=== PATIENT | female | born 1930 | race American Indian/Alaskan Native ===

== ENCOUNTER 2017-09-08 14:41 | Emergency (ER) | payer OTHER ==
[2017-09-08 14:55] VITALS: BMI 31.4
--- NOTE | 2017-09-08 15:28 | PDOC ---
History of Present Illness - History of Present Illness Initial Comments: 09/08/17 16:03 The patient is an 87 year old female with a history of CVA with residual slurred speech, Afib on xeralto, DC, DM, HTN, HLD who presents for evaluation following an injury to her left hip. The patient lives at a alf and is usually wheelchair bound. She states that she got her left leg caught in between her wheelchair and her bed injuring her leg. She reports pain in her left hip and left lower leg and was sent in from her alf for further evaluation. The patient has slurred speech at her baseline and is normal as reported by her son who has accompanied her to the hospital. The patient denies any head trauma or LOC. She denies fevers, chills, SOB, chest pain, abdominal pain, or changes with urination or bowel movements. <Eduard Hong - Last Filed: 09/08/17 19:00> <Karen Garcia - Last Filed: 09/08/17 19:45> - General Chief Complaint: Injury Stated Complaint: HIP PAIN Time Seen by Provider: 09/08/17 15:06 Past History - Past Medical History Cardiac Disorders: Yes (ANGINA.) COPD: No Diabetes: Yes GI Disorders: Yes (GERD. CONSTIPATION.) HTN: Yes Psychiatric Problems: Yes (ANXIETY. DEPRESSION.) Other medical history: RESTLESS LEG SYNDROME. INSOMNIA. - Immunization History Immunization Up to Date: Yes - Suicide/Smoking/Psychosocial Hx Smoking History: Never smoked Hx Alcohol Use: No Drug/Substance Use Hx: No Substance Use Type: None <Eduard Hong - Last Filed: 09/08/17 19:00> <Karen Garcia - Last Filed: 09/08/17 19:45> - Past Medical History Allergies/Adverse Reactions: Allergies Allergy/AdvReac Type Severity Reaction Status Date / Time Iodine and Iodide Containing Allergy Verified 09/08/17 14:55 Produc Penicillins Allergy Verified 09/08/17 14:55 Iv contrast Allergy Uncoded 09/08/17 14:55 Home Medications: Ambulatory Orders Acetaminophen 1,000 mg PO BID 09/08/17 Amlodipine Besylate 10 mg PO DAILY 09/08/17 Carbamide Peroxide [Ear Drops] 15 ml OT TID 09/08/17 Cholecalciferol (Vitamin D3) [Vitamin D3] 5,000 unit PO DAILY 09/08/17 Docusate Sodium 200 mg PO HS 09/08/17 Duloxetine HCl 40 mg PO DAILY 09/08/17 Escitalopram Oxalate [Lexapro -] 5 mg PO DAILY 09/08/17 Folic Acid 1 mg PO DAILY 09/08/17 Gabapentin 100 mg PO BID 09/08/17 Insulin Glargine,Hum.rec.anlog [Lantus Solostar PEN (NF)] 8 units SQ TID Insulin Lispro Protamin/Lispro [Humalog Mix 75-25 Kwikpen] 20 unit SQ HS Losartan Potassium 50 mg PO DAILY 09/08/17 Mag Hydrox/Al Hydrox/Simeth [Mylanta *Suspension*] 30 ml PO Q6H PRN 09/08/17 Melatonin 6 mg PO HS 09/08/17 Methyl Salicylate/Menth/Camph [Muscle Rub Ultra Str Cream] 113 gm TP BID Nystatin Cream [Mycostatin] 1 applic TP BID 09/08/17 Pantoprazole Sodium [Protonix -] 20 mg PO DAILY 09/08/17 Polyethylene Glycol 3350 [Laxaclear] 1,700 gm PO DAILY 09/08/17 Pramipexole Dihydrochloride [Mirapex -] 0.125 mg PO DAILY 09/08/17 Rivaroxaban [Xarelto -] 20 mg PO DAILY 09/08/17 Sennosides/Docusate Sodium [Senna Laxative Tablet] 2 each PO HS 09/08/17 Zinc Oxide 20% Topical Oint 454 gm TP BID 09/08/17 Review of Systems - Review of Systems Comments:: 09/08/17 16:19 Constitutional: No fevers, chills, fatigue, malaise HEENT: No Rhinorrhea, nasal congestion, visual changes Cardiovascular: No chest pain, syncope, palpitations, lightheadedness Respiratory: No Cough, SOB, Hemoptysis, Gastrointestinal: No Abdominal pain, Nausea, Vomiting, Constipation, Diarrhea, Melena Genitourinary: No Dysuria, Frequency, Urgency, Hesitancy, Hematuria, Flank pain Musculoskeletal: Left leg pain. No Myalgia, arthralgia Skin: No rashes, bruising, pallor Neurologic: No Headache, Dizziness, Numbness, Weakness, or Tingling Psychiatric: No Hallucinations. No SI or HI <Eduard Hong - Last Filed: 09/08/17 19:00> *Physical Exam - Vital Signs Last Vital Signs Temp Pulse Resp BP Pulse Ox 98.5 F 98 H 18 127/66 96 09/08/17 14:50 09/08/17 14:50 09/08/17 14:50 09/08/17 14:50 09/08/17 14:50 - Physical Exam Comments: 09/08/17 16:21 General Appearance: Nourished. No Apparent Distress HEENT: EOMI, COLLEEN. No signs of head trauma. Neck: No Cervical Lymphadenopathy Respiratory/Chest: Lungs Clear, Normal Breath Sounds. No Crackles, Rales, Rhonchi, Wheezing Cardiovascular: Regular Rhythm, Regular Rate. No Murmur, Gallops, Rubs Gastrointestinal/Abdominal: Normal Bowel Sounds, Soft. No Guarding, Rebound, Tenderness Musculoskeletal: Externally rotated left leg with tenderness to the tibia/ fibula. No pain with passive movement of the leg or active movement. No CVA Tenderness Extremity: Normal Capillary Refill Integumentary: Normal Color, Dry, Warm Neurologic: data assistant II-XII NML intact, Fully Oriented, Alert, Normal Mood/Affect, Normal Response, Motor Strength 5/5. <Eduard Hong - Last Filed: 09/08/17 19:00> - Vital Signs Last Vital Signs Temp Pulse Resp BP Pulse Ox 98.5 F 75 18 147/72 97 09/08/17 14:50 09/08/17 18:19 09/08/17 18:19 09/08/17 18:19 09/08/17 18:19 <Karen Garcia - Last Filed: 09/08/17 19:45> ED Treatment Course - LABORATORY CBC & Chemistry Diagram: 09/08/17 18:52 09/08/17 18:52 - RADIOLOGY Radiology Studies Ordered: Category Date Time Status FEMUR-LEFT [RAD] Stat Radiology 09/08/17 15:26 Ordered HIP & PELVIS-LEFT [RAD] Stat Radiology 09/08/17 15:26 Ordered <Eduard Hong - Last Filed: 09/08/17 19:00> - LABORATORY CBC & Chemistry Diagram: 09/08/17 18:52 09/08/17 18:52 - ADDITIONAL ORDERS Additional order review: Laboratory Results 09/08/17 18:52 Sodium 136 Potassium 4.8 Chloride 101 Carbon Dioxide 28 Anion Gap 7 L BUN 23 H Creatinine 0.8 Creat Clearance w eGFR > 60 Random Glucose 185 H D Calcium 9.0 Total Bilirubin 0.4 D AST 7 L D ALT 15 D Alkaline Phosphatase 90 Creatine Kinase 63 Troponin I 0.03 Total Protein 7.5 Albumin 3.6 09/08/17 18:52 RBC 4.34 MCV 88.7 MCHC 33.3 RDW 14.7 MPV 7.9 D Neutrophils % 65.4 Lymphocytes % 22.3 Monocytes % 10.1 Eosinophils % 1.7 Basophils % 0.5 <GarciaKaren - Last Filed: 09/08/17 19:45> Medical Decision Making - Medical Decision Making 09/08/17 16:42 The patient is an 87 year old female with a history of CVA with residual slurred speech, Afib on xeralto, DC, DM, HTN, HLD who presents for evaluation following an injury to her left hip. Differential includes but is not limited to: Fracture, dislocation, contusion, ligamentous injury. Given the patient's external rotation of her leg, we will obtain plain films of her left hip, femur , and tib/fib to evaluate for fracture. However, clinically it appears the patient is more likely to have sustained a contusion causing her symptoms. The patient denies any other injuries or head trauma and her slurred speech is baseline, therefore we do not feel further imaging is required at this time. We will continue to monitor and reassess. 09/08/17 18:32 Plain films demonstrate a small possible tibial fracture as read by our radiologist. We discussed the films and the patient with Dr. Almaguer/Dr. Lynn' s office who agreed that given the patient is wheelchair bound and how small the fracture is, she can follow up on an outpatient basis. We discussed this with the patient and her family and they are agreeable with that plan. The patient's EKG demonstrates afib which is known and reportedly the patient has had afib for over 10 years and is on xeralto. However an ekg done 1 year ago demonstrates sinus rhythm and given this change we will obtain a cbc, cmp, troponin to evaluate further. She will likely be discharged home if lab results are negative. 09/08/17 19:00 Patient signed out to the night team pending labs. Likely discharge back to [facility]. <Eduard Hong - Last Filed: 09/08/17 19:00> *DC/Admit/Observation/Transfer <Eduard Hong - Last Filed: 09/08/17 19:00> - Discharge Dispostion Admit: No <Karen Garcia - Last Filed: 09/08/17 19:45> Diagnosis at time of Disposition: Tibial fracture Qualifiers: Encounter type: initial encounter Tibia location: proximal Fracture type: closed Fracture morphology: unspecified fracture morphology Laterality: left Qualified Code(s): S82.102A - Unspecified fracture of upper end of left tibia, initial encounter for closed fracture - Discharge Dispostion Disposition: HOME Condition at time of disposition: Stable - Referrals Referrals: Bro Rosa [Primary Care Provider] - Antonio Almaguer MD [Staff Physician] - - Patient Instructions Printed Discharge Instructions: DI for Fracture Additional Instructions: Please return to the ER if you experience concerning or worsening symptoms including worsening pain, chest pain, or difficulty breathing. Your imaging results demonstrated a small fracture in your leg. We discussed your case with our orthopedic surgeons who would like to see you in their office for outpatient follow up in [address] Almaguer's office to schedule follow up. Please also schedule follow up with your primary care provider within 1 week to discuss your ER visit and further management of your symptoms. - Post Discharge Activity
--- NOTE | 2017-09-08 15:32 | PDOC ---
Attending Attestation - Resident Resident Name: Eduard Hong - HPI HPI: 09/08/17 17:10 87 y/o female here in ED for eval of pain in her left lower leg, pt was transfering from the wheelchair and leg became stuck between wheel chair and bed. Pt now has pain to lower mak area no bruising noted, no swelling, pt denies need for pain meds. Pt fell twice today but no report of hitting head, no loc, no nausea and vomiting, PT is on xeralto for afib - Physicial Exam PE: 09/08/17 17:15 Pt examined by senior mortgage underwriter of thsi note: HEENT: NC/AT, RUFUS, EOMI, TM's nl bilateral Neck: supple no midline tenderness Lungs: + bs farhat CTA Heart: S1S2 irregular, pt with h/o afib Abd: + bs abd soft no guarding or tenderness EXT: left leg, no swelling or bruising noted, no calf tenderness, nl pulses, left leg is externally rotated, no pelviv rock Neuro: alert and awake, pt is oriented, able to provide medical history but speech is slurrd secondary to previous stroke, no new deficits noted on exam, pt is not able to walk, - Medical Decision Making 09/08/17 17:20 87 y/o femlae referred to ED for eval after two falls today, pt injured left leg , falls occurred while trying to transfer from wheelchair to bed,mo report of hitting head, loc, [place] or vomitting, pt sent to ED for xrays of leg and hip s/p fall. Family is at the bedside with pt and says that she has been falling frequently becasue she can not walk and often try to transfer or move to quickly on her own. Pt's xray results noted possible subtle proximal tibia fracture noted, case was discussed with Ortho security operations analyst by the resident, Pt is not in acute pain declined pain meds, pt is not ambulatory, pt can be discharged back to retirement with knee immobilizer in place, and the out pt f/u with ortho. PT had an ekg done upon arrival to ED, pt never had chest pain, has no sob or any other symptoms but there are ekg changes, will check basic labs including trop, if neg, pt stable for transfer back to retirement, the patient and her family agree with this plan, case endorsed to Dr. Bucio f/u betys and make final disposition 09/08/17 19:53
[2017-09-08 19:10] LABS: BASOPHIL 0.5 % (0-2.0); EOSINOPHIL 1.7 % (0-4.5); MCH 29.5 pg (25.7-33.7); MCHC 33.3 g/dl (32.0-36.0); MEAN CELL VOLUME 88.7 fl (80-96); MEAN PLT VOLUME 7.9 fl (7.5-11.1); NEUTROPHILS 65.4 % (42.8-82.8); PLATELET COUNT 284 K/MM3 (134-434); RDW 14.7 % (11.6-15.6); WHITE BLOOD COUNT 9.8 K/mm3 (4.0-10.0)
[2017-09-08 19:27] LABS: ALBUMIN 3.6 g/dl (3.4-5.0); ANION GAP 7 (8-16); BILIRUBIN,TOTAL 0.4 mg/dL (0.2-1.0); CO2 28 mmol/L (21-32); CREATININE 0.8 mg/dL (0.55-1.02); GLUCOSE,RANDOM 185 mg/dL (74-106); SGOT/AST 7 U/L (15-37); SGPT/ALT 15 U/L (12-78); TOT PROT 7.5 g/dl (6.4-8.2)
[2017-09-08 19:30] LABS: ALK PHOS 90 U/L (45-117); CPK 63 IU/L (26-192); TROPONIN I 0.03 ng/ml (0.00-0.05)
[2017-09-08 19:57] VITALS: BP 165/86; PULSE 97; TEMP 98.4
[2017-09-08] MEDS ORDERED: ACETAMINOPHEN 325 MG TABLET (FP) PO ONE (20:11)
[2017-09-08] MEDS ORDERED: ACETAMINOPHEN 325 MG TABLET (FP) ONE ×2 (20:12→20:14)
--- NOTE | 2017-09-10 09:52 | EKG ---
Test Reason : Blood Pressure : / mmHG Vent. Rate : 089 BPM Atrial Rate : 159 BPM P-R Int : 000 ms QRS Dur : 094 ms QT Int : 386 ms P-R-T Axes : 000 -10 010 degrees QTc Int : 469 ms ATRIAL FIBRILLATION INFERIOR INFARCT , AGE UNDETERMINED ABNORMAL ECG WHEN COMPARED WITH ECG OF 08-SEP-2017 15:56, PREVIOUS ECG HAS UNDETERMINED RHYTHM, NEEDS REVIEW INFERIOR INFARCT IS NOW PRESENT Confirmed by EMILY ALVAREZ, MARY ANN ([id number]) on 09/10/2017 9:52:08 AM Referred By: Confirmed By:MARY ANN DIAZ MD
--- NOTE | 2017-09-10 14:01 | EKG ---
Test Reason : Blood Pressure : / mmHG Vent. Rate : 082 BPM Atrial Rate : 082 BPM P-R Int : 132 ms QRS Dur : 084 ms QT Int : 372 ms P-R-T Axes : 196 003 035 degrees QTc Int : 434 ms UNDETERMINED RHYTHM CANNOT RULE OUT ATRIAL FIBRILLATION BASELINE ARTIFACT VENTRICULAR PACED BEAT (DEMAND) ABNORMAL ECG WHEN COMPARED WITH ECG OF 14-OCT-2016 01:35, LIKELY UNCHANGED Confirmed by JUSTO VARELA MD ([id number]) on 09/10/2017 2:01:20 PM Referred By: Confirmed By:JUSTO VARELA MD
== END 2017-09-08 21:15 ==
LOC: JER 14:41
DX: S82.102A Unspecified fracture of upper end of left tibia, initial encounter for closed fracture (principal); W23.0XXA Caught, crushed, jammed, or pinched between moving objects, initial encounter; Y93.89 Activity, other specified; Y92.122 Bedroom in nursing home as the place of occurrence of the external cause; Y99.8 Other external cause status; I48.91 Unspecified atrial fibrillation; Z79.01 Long term (current) use of anticoagulants; I25.2 Old myocardial infarction; I10 Essential (primary) hypertension; E11.9 Type 2 diabetes mellitus without complications; Z79.4 Long term (current) use of insulin; E78.00 Pure hypercholesterolemia, unspecified; K21.9 Gastro-esophageal reflux disease without esophagitis; K59.00 Constipation, unspecified; F41.8 Other specified anxiety disorders; G47.00 Insomnia, unspecified; G25.81 Restless legs syndrome; Z99.3 Dependence on wheelchair
CPT/HCPCS: 36415; 73523-TC; 73552-TC-LT; 73590-TC-LT; 80053; 82550; 84484; 85025; 93005; 93010; 99284-25